=== PATIENT | male | born 1985 | race Caucasian/White ===

== ENCOUNTER 2016-05-05 08:32 | Emergency (ER) | payer OTHER ==
[~2016-05-05] VITALS: Ht 170.2 cm; Wt 81.7 kg
[~2016-05-05 08:32] MED LIST: ALPRAZOLAM; AMBIEN 10 MG TA10 MG PO; ATIVAN0.5 MG; ATIVAN1 MG PO; CARISOPRODOL 3350 MG PO; CELEXA20 MG; CYCLOBENZAPRINE5 MG PO; FLEXERIL PO; IBUPROFEN 400400 M2 PO; LORTAB 5 MG/5001 TA1 PO; NOHOMEMEDICATIONS; NORCO 5-325 TA1 EACH PO; PERCOCET 5-3251 EACH PO; PREDNISONE 20 M20 MG PO; PROAIR HFA8.5 GM; ULTRAM 50MG TAB50 MG PO; VENTOLIN HFA 1818 GM; VENTOLIN HFA INH8 GM INH; VICODIN 5-5001 EACH PO; XANAX XR1 MG PO
[2016-05-05 08:34] VITALS: BP 118/76
[2016-05-05] MEDS ORDERED: NOHOMEMEDICATIONS (08:38)
[2016-05-05] MEDS ORDERED: NAPROSYN500 MG PO (08:58)
[2016-05-05] MEDS ORDERED: LIORESAL 10 MG10 MG PO (08:58)
[2016-05-05] MEDS ORDERED: NORCO 5-325 TA1 EACH PO (08:58)
[2016-06-04] MEDS ORDERED: IBUPROFEN 200200 M1 PO (17:20)
[2016-06-04] MEDS ORDERED: NAPROSYN500 MG PO (17:37)
[2016-06-04] MEDS ORDERED: NORFLEX100 MG PO (17:37)
[2016-06-04] MEDS ORDERED: TRAMADOL 50 MG50 MG PO (17:37)
== END 2016-05-05 09:08 | disposition home or self-care (01) ==
LOC: ER 08:32
DX: M51.26 Other intervertebral disc displacement, lumbar region (principal); F17.210 Nicotine dependence, cigarettes, uncomplicated; J45.909 Unspecified asthma, uncomplicated; F41.9 Anxiety disorder, unspecified; Z88.0 Allergy status to penicillin

== ENCOUNTER 2017-01-14 15:43 | Emergency (ER) | payer OTHER ==
[~2017-01-14] VITALS: Ht 170.2 cm; Wt 81.7 kg
[~2017-01-14 15:43] MED LIST changes: +IBUPROFEN 200200 M1 PO; +LIORESAL 10 MG10 MG PO; +NAPROSYN500 MG PO; +NORFLEX100 MG PO; +TRAMADOL 50 MG50 MG PO
[2017-01-14 15:44] VITALS: BP 128/82
[2017-01-14] MEDS ORDERED: VALIUM5 MG PO (15:59)
[2017-01-14] MEDS ORDERED: NORCO 5-325 TA1 EACH PO (15:59)
== END 2017-01-14 16:13 | disposition home or self-care (01) ==
LOC: ER 15:43
DX: M54.5 Low back pain (principal); J45.909 Unspecified asthma, uncomplicated; F41.9 Anxiety disorder, unspecified; G89.29 Other chronic pain; F17.210 Nicotine dependence, cigarettes, uncomplicated; Z88.0 Allergy status to penicillin

== ENCOUNTER 2017-08-22 07:25 | Emergency (ER) | payer OTHER ==
[~2017-08-22] VITALS: Ht 170.2 cm; Wt 81.7 kg
[~2017-08-22 07:25] MED LIST changes: +VALIUM5 MG PO
[2017-08-22] MEDS ORDERED: NORCO 5-325 TA1 EACH PO (09:24)
[2017-08-22] MEDS ORDERED: TIZANIDINE HCL4 MG PO (09:24)
[2017-08-22] MEDS ORDERED: IBUPROFEN 600600 M1 PO (09:24)
[2017-08-22 09:32] VITALS: BP 127/75
== END 2017-08-22 09:33 | disposition home or self-care (01) ==
LOC: ER 07:25
DX: M54.5 Low back pain (principal); G89.29 Other chronic pain; J45.909 Unspecified asthma, uncomplicated; F41.9 Anxiety disorder, unspecified; F17.210 Nicotine dependence, cigarettes, uncomplicated; Z88.0 Allergy status to penicillin

== ENCOUNTER 2019-02-07 17:44 | Emergency (ER) | payer OTHER ==
[~2019-02-07] VITALS: Ht 172.7 cm; Wt 81.7 kg
[~2019-02-07 17:44] MED LIST changes: +IBUPROFEN 600600 M1 PO; +TIZANIDINE HCL4 MG PO
[2019-02-07 17:48] VITALS: BP 120/98
[2019-02-07] MEDS ORDERED: NAPROSYN500 M1 PO (18:29)
[2019-02-07] MEDS ORDERED: NORCO 5-325 TA1 EAC1 PO (18:29)
[2019-02-07] MEDS ORDERED: PREDNISONE50 MG PO (18:30)
== END 2019-02-07 18:42 | disposition home or self-care (01) ==
LOC: ER 17:44
DX: G56.21 Lesion of ulnar nerve, right upper limb (principal); J45.909 Unspecified asthma, uncomplicated; F41.9 Anxiety disorder, unspecified; G89.29 Other chronic pain; M54.9 Dorsalgia, unspecified; F17.210 Nicotine dependence, cigarettes, uncomplicated; Z88.0 Allergy status to penicillin

== ENCOUNTER 2019-07-17 00:40 | Emergency (ER) | payer OTHER ==
[~2019-07-17] VITALS: Ht 172.7 cm; Wt 81.7 kg
[~2019-07-17 00:40] MED LIST changes: +NAPROSYN500 M1 PO; +NORCO 5-325 TA1 EAC1 PO; +PREDNISONE50 MG PO
[2019-07-17 00:44] VITALS: BP 136/85
[2019-07-17] MEDS ORDERED: PHENERGAN 25 MG25 M1 PO (02:00)
[2019-07-17 02:41] LABS: CALCIUM 9.1 mg/dL (8.5-10.1); POTASSIUM 3.4 mmol/L (3.5-5.1)
== END 2019-07-17 02:07 ==
LOC: ER 00:40
PROVIDERS: Emergency Medicine
DX: F11.23 Opioid dependence with withdrawal (principal); R11.2 Nausea with vomiting, unspecified; J45.909 Unspecified asthma, uncomplicated; G89.29 Other chronic pain; F17.210 Nicotine dependence, cigarettes, uncomplicated; Z88.0 Allergy status to penicillin